=== PATIENT | male | born 1975 | race Caucasian/White ===

== ENCOUNTER 2023-12-15 14:04 | Emergency (ER) | payer MEDICAID ==
[2023-12-15] MEDS: Bacitracin Oint 1 GM U/D Packet TOP ONE (15:54)
[2023-12-15] MEDS: Lidocaine 1% with EPINEPHrine 1:100,000 20 ML MDV INJECT ONE (15:54)
== END 2023-12-15 15:59 | disposition home or self-care (01) ==
LOC: JP.ED 14:04
DX: S60.455A Superficial foreign body of left ring finger, initial encounter (principal); I10 Essential (primary) hypertension; F17.210 Nicotine dependence, cigarettes, uncomplicated; Z88.8 Allergy status to other drugs, medicaments and biological substances; Z79.899 Other long term (current) drug therapy; W45.8XXA Other foreign body or object entering through skin, initial encounter
CPT/HCPCS: 64450; 99283-25